=== PATIENT | female | born 1945 | race Two or more races ===

== ENCOUNTER 2020-02-29 16:43 | Emergency (ER) | payer MEDICARE, MEDICAID ==
[~2020-02-29] VITALS: Ht 165.1 cm; Wt 159.0 kg
[2020-02-29] MEDS ORDERED: METHYLPREDNISOLONE SOD SUCC 125 MG/2 ML VIAL IV STA (18:46)
[2020-02-29 21:00] LABS: HEMATOCRIT. 33.3 % (36.0-48.0); HEMOGLOBIN. 10.8 g/dL (12.0-16.0); MEAN CORPUSCULAR HEMOGLOBIN 31.1 pg (28.0-32.0); MEAN CORPUSCULAR VOLUME 95.9 fL (81.0-99.0); MEAN PLATELET VOLUME 10.3 fl (7.4-10.4); PLATELET 264 x1000/uL (130-400); RED BLOOD CELL COUNT 3.47 mill/uL (4.2-5.4); RED CELL DISTRIBUTION WIDTH 15.9 % (11.6-14.6)
[2020-02-29 21:02] LABS: CHLORIDE 103 mEq/L (98-107)
[2020-02-29] MEDS ORDERED: SODIUM CHLORIDE 0.9% 500 ML IV NR (21:30)
[2020-02-29 21:56] LABS: PLATELET ESTIMATE NORMAL
[2020-03-01 00:59] VITALS: BP 145/74
== END 2020-03-01 01:28 | disposition home or self-care (01) ==
LOC: ER 16:43
DX: D72.829 Elevated white blood cell count, unspecified (principal); R13.10 Dysphagia, unspecified; I10 Essential (primary) hypertension; R79.89 Other specified abnormal findings of blood chemistry; E66.01 Morbid (severe) obesity due to excess calories; Z68.43 Body mass index [BMI] 50.0-59.9, adult; Z87.440 Personal history of urinary (tract) infections
CPT/HCPCS: 36415; 70450; 71045; 80053; 83690; 83880; 84484; 85025; 93005; 96374; 99285; J2930